=== PATIENT | female | born 2000 ===

== ENCOUNTER 2022-07-12 09:45 | Outpatient (CLI) | payer MEDICAID, SELFPAY ==
[2022-07-12 11:26] LABS: Alanine Aminotransferase* 14 U/L (4-35); Aspartate Amino Transferase* 21 U/L (12-35)
[2022-07-13 22:57] LABS: Bile Acids, Total 8 umol/L (0-10)
== END 2022-07-12 09:46 | disposition home or self-care (01) ==
PROVIDERS: Visit Provider Advanced Practice Midwife
DX: L29.9 Pruritus, unspecified (principal)
CPT/HCPCS: 82239; 84450; 84460

== ENCOUNTER 2022-07-15 13:56 | Outpatient (CLI) | payer MEDICAID, SELFPAY ==
--- NOTE | 2022-07-15 14:00 | CRLHL7_ITS ---
For Patients: As a result of the Cures Act, medical imaging exams and procedure reports are released immediately into your electronic medical record. You may view this report before your referring provider. If you have questions, please contact your health care provider. INDICATION: OB BPP AND FOLLOW UP, TRANSFER OF CARE COMPARISON: none TECHNIQUE: Real time schuler scale imaging of the fetus was performed. FINDINGS: Sonographic imaging demonstrates a single living intrauterine gestation. Fetus demonstrates a regular cardiac rate of 129 beats per minute. Fetus has a vertex position. The placenta lies posteriorly. Amniotic fluid volume appears normal and there is a single deepest vertical pocket: 4.5 cm. The estimated weight is 1981gm which lies at the 37th %. BPD 29th percentile. HC 20th percentile. AC 43rd percentile. FL 41st percentile. The HC/AC ratio measures 1.05 range (0.96-1.12). Normal gross body movements, tone and respiratory activity. IMPRESSION: Biophysical profile 03/15. Sonographic gestational age 32 weeks 4 days and sonographic due date 09/05/2022. Good correlation with dates. Estimated weight 37th percentile. Abdominal circumference 43rd percentile. Dictated by Chay Lorenzo MD @ 07/16/2022 11:49:31 AM (Electronically Signed)
== END 2022-07-15 13:57 | disposition home or self-care (01) ==
PROVIDERS: Visit Provider Advanced Practice Midwife
DX: O26.619 Liver and biliary tract disorders in pregnancy, unspecified trimester (principal); K83.1 Obstruction of bile duct
CPT/HCPCS: 76816; 76819

== ENCOUNTER 2022-07-15 15:47 | Outpatient (CLI) | payer MEDICAID, SELFPAY ==
[2022-07-15 17:32] LABS: Alanine Aminotransferase* 13 U/L (4-35); Aspartate Amino Transferase* 17 U/L (12-35)
[2022-07-18 12:22] LABS: Rapid Plasma Reagin (RPR) Non Reactive (Non Reactive)
[2022-07-18 18:56] LABS: Bile Acids, Total 9 umol/L (0-10)
== END 2022-07-15 15:48 | disposition home or self-care (01) ==
PROVIDERS: Visit Provider Obstetrics & Gynecology
DX: Z34.83 Encounter for supervision of other normal pregnancy, third trimester (principal); L29.9 Pruritus, unspecified
CPT/HCPCS: 76816; 76819; 82239; 84450; 84460; 86592; 86900; 86901

== ENCOUNTER 2022-07-22 10:29 | Outpatient (CLI) | payer MEDICAID, SELFPAY ==
[2022-07-22 13:45] LABS: Alanine Aminotransferase* 16 U/L (4-35); Aspartate Amino Transferase* 19 U/L (12-35)
[2022-07-23 17:31] LABS: Bile Acids, Total 2 umol/L (0-10)
== END 2022-07-22 10:30 | disposition home or self-care (01) ==
PROVIDERS: Visit Provider Obstetrics & Gynecology
DX: L29.9 Pruritus, unspecified (principal)
CPT/HCPCS: 82239; 84450; 84460

== ENCOUNTER 2022-08-05 10:08 | Outpatient (CLI) | payer MEDICAID, SELFPAY ==
[2022-08-05 12:27] LABS: Alanine Aminotransferase* 13 U/L (4-35); Aspartate Amino Transferase* 18 U/L (12-35)
[2022-08-06 14:44] LABS: Strep B DNA Probe NEGATIVE (Negative)
[2022-08-06 16:01] LABS: Bile Acids, Total 6 umol/L (0-10)
[2022-08-07 17:04] LABS: Strep B Pen/Amox Allergy No
== END 2022-08-05 10:09 | disposition home or self-care (01) ==
PROVIDERS: Visit Provider Obstetrics & Gynecology
DX: Z34.83 Encounter for supervision of other normal pregnancy, third trimester (principal); L29.9 Pruritus, unspecified; Z3A.35 35 weeks gestation of pregnancy
CPT/HCPCS: 82239; 84450; 84460; 87081; 87653

== ENCOUNTER 2022-08-12 08:45 | Outpatient (CLI) | payer MEDICAID, SELFPAY ==
--- NOTE | 2022-08-12 08:45 | CRLHL7_ITS ---
For Patients: As a result of the Century Cures Act, medical imaging exams and procedure reports are released immediately into your electronic medical record. You may view this report before your referring provider. If you have questions, please contact your health care provider. INDICATION: INCREASED RISK FOR CHOLESTASIS TECHNIQUE: Real time schuler scale imaging of the fetus was performed. COMPARISON: 07/15/2022 FINDINGS: Sonographic imaging demonstrates a single living intrauterine gestation. Fetus demonstrates a regular cardiac rate of 154 beats per minute. Fetus has a vertex position. The placenta lies posteriorly. Amniotic fluid volume appears normal and there is a single deepest pocket of 5.8 cm. The estimated weight is 2960gm which lies at the 53rd %. On the prior OB ultrasound dated 07/15/2022 the estimated weight was at the 37th percentile. BPD 40th percentile. HC 26th percentile. AC 59th percentile. FL 56th percentile. The fetus was active and without normal breathing movements. There was normal flexion and extension of the trunk and extremities. IMPRESSION: Biophysical profile 01/13. Absent breathing activity. Sonographic gestational age 36 weeks 3 days and sonographic due date 09/06/2022. Good correlation with dates. Normal interval growth. Estimated weight 53rd percentile. Abdominal circumference 59th percentile. Dictated by Chay Lorenzo MD @ 08/12/2022 1:38:46 PM (Electronically Signed)
== END 2022-08-12 08:46 | disposition home or self-care (01) ==
LOC: US 08:46
PROVIDERS: Visit Provider Advanced Practice Midwife
DX: O26.619 Liver and biliary tract disorders in pregnancy, unspecified trimester (principal); K83.1 Obstruction of bile duct
CPT/HCPCS: 76816; 76819

== ENCOUNTER 2022-08-12 08:55 | Outpatient (CLI) | payer MEDICAID, SELFPAY ==
[2022-08-12 10:52] LABS: Alanine Aminotransferase* 14 U/L (4-35); Aspartate Amino Transferase* 23 U/L (12-35)
[2022-08-14 05:47] LABS: Bile Acids, Total 3 umol/L (0-10)
== END 2022-08-12 08:56 | disposition home or self-care (01) ==
PROVIDERS: Visit Provider Obstetrics & Gynecology
DX: L29.9 Pruritus, unspecified (principal)
CPT/HCPCS: 76816; 76819; 82239; 84450; 84460

== ENCOUNTER 2022-08-19 10:01 | Outpatient (CLI) | payer MEDICAID, SELFPAY ==
[2022-08-19 13:06] LABS: Alanine Aminotransferase* 13 U/L (4-35); Aspartate Amino Transferase* 24 U/L (12-35)
[2022-08-20 22:44] LABS: Bile Acids, Total 4 umol/L (0-10)
== END 2022-08-19 10:02 | disposition home or self-care (01) ==
PROVIDERS: Visit Provider Obstetrics & Gynecology
DX: O99.013 Anemia complicating pregnancy, third trimester (principal); L29.9 Pruritus, unspecified; Z34.83 Encounter for supervision of other normal pregnancy, third trimester; Z3A.37 37 weeks gestation of pregnancy
CPT/HCPCS: 82239; 84450; 84460

== ENCOUNTER 2022-08-30 14:15 | Inpatient (IN) | payer MEDICAID, SELFPAY ==
[2022-08-30] VITALS (11 sets, daily range): BP systolic 103–123; BP diastolic 55–66; PULSE 65–88; RESP 16–18; TEMP 36.6–36.7; BMI 38.4
[2022-08-30 13:08] LABS: Amnisure Rom* Negative
--- NOTE | 2022-08-30 14:09 | PM.OBHPLI ---
OB - H&P: HPI Labor/Induction History of Present Illness Time Seen by Provider: 14:10 Date Seen: 08/30/22 Chief Complaint: LOF Chief complaint: Maternity Narrative: The patient is a 21 year old 3 para 1011 at 39.1 weeks gestation who presents with possible LO due to increased discharge. AmniSure negative. However, patient has elective IOL scheduled for this afternoon anyway. Currently, she has irregular contractions. No vaginal bleeding. Very active movements. See full H&P by Dr. Correa on 08/19. Review of Systems Status of ROS: Reports: 10 or more systems reviewed and unremarkable except as noted in History and below Meds Home Medications and Allergies Home Medications Medication Instructions Recorded Confirmed Type hydroxyzine HCl 10 mg tablet 10 mg PO QID PRN 07/12/22 08/30/22 History omeprazole 20 mg capsule,delayed 20 mg PO BID 07/12/22 08/30/22 History release prenat.vits,darci,cym-gyrg-zdiib 1 tab PO QDAY 07/22/22 08/30/22 History Allergies Allergy/AdvReac Type Severity Reaction Status Date / Time No Known Drug Allergies Allergy Verified 08/26/22 10:11 OB - H&P: Exam Physical Exam: Vital signs: Temp Pulse Resp BP 98.1 F 88 16 123/58 L 08/30/22 12:30 08/30/22 12:31 08/30/22 12:30 08/30/22 12:31 Narrative: Physical exam: General: No acute distress Psych: Alert and oriented x3, full affect Lungs: Unlabored breathing Abdomen: Gravid and soft without tenderness, guarding or rebound Skin: No lesions or rashes Lower extremities: No edema or erythema Pelvic exam: Dry perineum. SVE 3 OB - Problem Based A/P Additional Plan (1) : Status: Acute (2) Anemia: Status: Acute Plan - Cook cath placed by myself at 1345. head was noted to be somewhat ballotable. I comforted vertex positioning with BSUS after placement of cook cath - Plan for titrating pitocin 6 hours after cook cath placement - Amniotomy as need - Pain management: Epidural eventually
[2022-08-30 15:54] LABS: SARS PCR* Negative SARS-CoV-2 (Negative)
[2022-08-30] MEDS: MORPHINE 10 MG/ML inj IM (17:25)
[2022-08-30 19:15] LABS: Basophils Absolute Auto 0.02 K/uL (0.00-0.30); Basophils Percent Auto 0.2 % (0.0-3.0); Eosinophils Absolute Auto 0.05 K/uL (0.00-0.50); Eosinophils Percent Auto 0.5 % (0.0-7.0); Hematocrit 32.6 % (33.0-51.0); Immature Granulocytes Abs Auto 0.09 K/uL (0.00-0.30); Immature Granulocytes Pct Auto 0.9 %; Lymphocytes Percent Auto 18.5 % (20-44); Mean Corpuscular HGB Conc 31 gm/dL (32-36); Mean Corpuscular Hemoglobin 23 pg (26-34); Mean Corpuscular Volume 74 fL (80-100); Monocytes Percent Auto 8.6 % (0.0-11.0); Neutrophils Absolute Auto 7.53 K/uL (1.7-7.0); Neutrophils Percent Auto 71.3 % (42.0-72.0); Platelet Count* 307 K/uL (140-440); RDW Coefficient of Variation % 16.5 % (11.5-15.5); Red Blood Count 4.43 m/uL (4.00-5.20); White Blood Count* 10.55 K/uL (4.50-11.00)
[2022-08-30 19:16] LABS: Slide Review Reflex No
[2022-08-30] MEDS: LACTATED RINGERS 1000 ML 1,000 ML 125 ML IV (20:30)
[2022-08-30] MEDS: OXYTOCIN 30 unit/500 ML in NS 30 UNIT/500 ML BAG IVPB (20:30)
[2022-08-31] VITALS (47 sets, daily range): BP systolic 95–128; BP diastolic 51–73; PULSE 62–106; RESP 16–18; TEMP 36.4–36.7; O2SAT 93–100
[2022-08-31] MEDS: LACTATED RINGERS 1000 ML 1,000 ML 125 ML IV (04:22)
[2022-08-31] MEDS: fentaNYL 250 MCG/5 ML inj 100 MCG EPIDURAL (06:30)
[2022-08-31] MEDS: LIDOCAINE 2% (PF) 5 ML VIAL EPIDURAL (06:30)
[2022-08-31] MEDS: LACTATED RINGERS 1000 ML 1,000 ML IV (06:37)
[2022-08-31] MEDS: ROPIVACAINE 0.2% 100 ml 100 ML 12 MG EPIDURAL (06:38)
--- NOTE | 2022-08-31 06:51 | P.ANBPRC_ITS ---
[facility] Medical History (Updated 08/26/22 @ 10:50 by Effie Givens MD) Cholestasis during Family History (Updated 07/12/22 @ 09:27 by Linda Novoa CNM) Grandfather Diabetes Prostate cancer Mother Seizure disorder Social History Smoking Status: Never smoker Little interest or pleasure in doing things: not at all Feeling down, depressed, or hopeless: not at all Meds Home Medications and Allergies Home Medications Medication Instructions Recorded Confirmed Type hydroxyzine HCl 10 mg tablet 10 mg PO QID PRN 07/12/22 08/30/22 History omeprazole 20 mg capsule,delayed 20 mg PO BID 07/12/22 08/30/22 History release prenat.vits,darci,lim-mgwp-vgxcm 1 tab PO QDAY 07/22/22 08/30/22 History Allergies Allergy/AdvReac Type Severity Reaction Status Date / Time No Known Drug Allergies Allergy Verified 08/26/22 10:11 Results Labs Labs: Laboratory Results - last 24 hr 08/30/22 08/30/22 08/30/22 12:39 13:55 18:45 WBC 10.55 RBC 4.43 Hgb 10.0 L Hct 32.6 L MCV 74 L MCH 23 L MCHC 31 L RDW Coeff of Anthony 16.5 H Plt Count 307 Neut % (Auto) 71.3 Lymph % (Auto) 18.5 L [place] % (Auto) 8.6 Eos % (Auto) 0.5 Baso % (Auto) 0.2 Neut # (Auto) 7.53 H Lymph # (Auto) 2.00 [place] # (Auto) 0.90 Eos # (Auto) 0.05 Baso # (Auto) 0.02 Membrane Rupture Negative SARS-CoV-2 (PCR) Negative SARS-CoV-2 Blood Type Antibody Screen 08/30/22 18:45 WBC RBC Hgb Hct MCV MCH MCHC RDW Coeff of Anthony Plt Count Neut % (Auto) Lymph % (Auto) [place] % (Auto) Eos % (Auto) Baso % (Auto) Neut # (Auto) Lymph # (Auto) [place] # (Auto) Eos # (Auto) Baso # (Auto) Membrane Rupture SARS-CoV-2 (PCR) Blood Type O Positive Antibody Screen NEGATIVE Vital Signs Vital Signs: Last Vital Signs Temp 97.8 F 08/31/22 05:41 Pulse 85 08/31/22 06:47 Resp 18 08/31/22 05:41 BP 113/57 L 08/31/22 06:47 Pulse Ox 97 08/31/22 06:48 Weight: 108 kg Height: 167.64 cm Anesthesia Procedures Epidural Insertion Patient Location: OB Start Time: 06:00 Stop Time: 07:00 Start Date: 08/31/22 Stop Date: 08/31/22 Reason for Block: primary anesthetic Patient Position: sitting Performed By: Chan Leone Preanesthetic Checklist: IV checked, risks and benefits discussed, surgical consent, monitors and equipment checked, pre-op evaluation, timeout performed and anesthesia consent Prep: chlorhexidine gluconate Monitoring: blood pressure monitoring, monitoring engineer, continuous pulse oximetry and heart rate Approach: midline Vertebral Space: lumbar (1-5) Needle Type: Tuohy needle Injection Technique: continuous catheter Needle gauge: 17 Needle Length (cm): 10 cm Needle Insertion Depth (cm): 6 Catheter Gauge: 19 Catheter Type: multi-orifice Catheter at skin depth (cm): 12 Test Dose Result: negative and lidocaine 1.5% with epinephrine 1 to 200,000 Events: other
--- NOTE | 2022-08-31 08:22 | PM.OBPRCVD ---
Procedure Delivery date: 08/31/22 Procedure Done: Global Procedure Details: The patient is a 21 year-old G 3 P 1 0 1 2 admitted on 08/30/2022 at 39 Weeks, 1 Days gestation for induction of labor.? Cervical exam on admission was 1 cm/25 % effaced/-3 station with membranes intact in vertex presentation.? Contractions were sporadic.? heart rate demonstred a category 1 tracing.? SROM occurred at 0711 with clear fluid. ? Labor Analgesia:? Epidural ? Pitocin:? Yes ? Labor onset:? 209 ? Complete:? 730 ? Pushing:? 740 ? heart tones during second stage with a prolonged deceleration, I was called in to the room to evaluate after deceleration. Patient was in hands and knees, CNM at bedside placing a scalp electrode. This was unsuccessful, I asked patient to be placed back on her back and I did a cervical check, station was found at +1. External monitor sowing heart rate on the 80s. I then asked mom to do a push to evaluate if she could move baby quickly, she did and even w/o a uterine contraction baby was seen to move to +2 station, I asked for a vacuum but patient kept pushing and w/o assistance delivered baby head in OP presentation with cord wrapped around body, this was easily reduced followed by delivery of the rest of the body. ? At 0752 a viable female delivered in vertex OP presentation over intact perineum via spontaneous vaginal delivery.? Infant was placed on maternal abdomen.? Cord was clamped and cut after a 30-60 second delay.? Nose and mouth were bulb suctioned.? Infant weight pending.? 6 at 1 minute and 9 at 5 minutes.? Shoulder dystocia: No.?Cord wrapped around body x1. ? Placenta delivered spontaneously and complete at 0759 with a 3 vessel cord. ? Mother and infant were stable after delivery. ? Lacerations:? Second-degree, repaired with Vicryl 3-0. ? Blood loss: 100 mL. Blood loss measurement type: QBL ? Sponge and needles counts are correct.
[2022-08-31] MEDS: ACETAMINOPHEN 500 MG TABLET 1000 MG PO ×3 (10:16→22:33)
[2022-08-31] MEDS: DOCUSATE SODIUM 100 MG CAPSULE PO (10:16)
[2022-08-31] MEDS: HYDROCORTISONE 1 % CREAM 1 APPLIC TOPICAL (12:45)
[2022-08-31] MEDS: IBUPROFEN 600 MG TABLET PO (19:46)
[2022-09-01] MEDS: CALCIUM CARBONATE 500 MG CHEW PO (00:33)
[2022-09-01 00:52] VITALS: BP 106/70; PULSE 73; RESP 16; TEMP 36.6; O2SAT 98
[2022-09-01] MEDS: IBUPROFEN 600 MG TABLET PO (02:30)
[2022-09-01] MEDS: LANOLIN CREAM 1 APPLIC TOPICAL (02:37)
[2022-09-01] MEDS: ACETAMINOPHEN 500 MG TABLET 1000 MG PO (04:49)
[2022-09-01 04:55] VITALS: BP 97/60; PULSE 67; RESP 14; TEMP 36.4; O2SAT 99
[2022-09-01 07:38] LABS: Hemoglobin* 9.4 gm/dL (12.0-16.0)
[2022-09-01 07:45] VITALS: BP 102/62; PULSE 69; RESP 16; TEMP 36.6; O2SAT 98
--- NOTE | 2022-09-01 10:37 | PM.OBDSVD1 ---
DS: Providers Provider Date Seen: 09/01/22 Date of admission: 08/30/22 14:15 Primary care physician: Not a Local Provider Admitting Clinician: Saritha Hull MD Attending Physician on discharge: Tory Cavrajal CNM Date of Discharge: 09/01/22 DS: Diagnosis Discharge Diagnosis (1) care and examination immediately after delivery: Status: Acute (2) Lactating mother: Status: Acute Exam Narrative: Exam Narrative: GENERAL APPEARANCE:? normal affect, alert, no distress? MOOD:? appropriate? CHEST:? clear to auscultation? HEART:? regular rate and rhythm? ABDOMEN:? soft, non-tender the uterine fundus is At Umbilicus, Midline and is appropriate for the stage of recovery.? PERINEUM:? mild edema of the perineum, there is a Perineal Laceration,? 2nd degree, that is healing well.? EXTREMITIES:? normal and trace edema? Const: Vital Signs, click to edit/add: Vital Signs - 24 hr 08/31/22 12:05 08/31/22 16:25 08/31/22 19:03 Temperature 97.7 F 97.5 F L 98.1 F Pulse Rate [Blood Pressure Cuff] 80 80 87 Pulse Rate [Pulse Oximeter] Respiratory Rate 16 16 16 Blood Pressure [Le ft Arm] 110/73 95/61 105/62 Pulse Oximetry 97 99 Oxygen Delivery Me thod Room Air Room Air Room Air 09/01/22 00:52 09/01/22 04:55 09/01/22 07:45 Temperature 97.8 F 97.6 F 98 F Pulse Rate [Blood Pressure Cuff] Pulse Rate [Pulse Oximeter] 73 67 69 Respiratory Rate 16 14 16 Blood Pressure [Le ft Arm] 106/70 97/60 102/62 Pulse Oximetry 98 99 98 Oxygen Delivery Me thod Room Air Room Air Room Air OB - DS: Summary Hospital Course Hospital Course: The patient is a 21 year old G 3 P 2011 at 39 1/7 weeks gestation that was admitted to the Center on 08/30/22 for labor. She had an uncomplicated vaginal delivery. She delivered a viable female . the patient has done well. complicated by anemia, started on iron. The patient feels well.? The pain is well controlled with current medications.? She has no new complaints.? Urinary output is adequate and she is voiding without difficulty.? Has a good appetite, is tolerating a general diet, is passing flatus, and has had a bowel movement.? Has scant amount of rubra lochia.? She is ambulating well. She is and reports it is going well.? Peripartum Data delivery method: Vaginal Laceration description: Perineal - 2nd Degree [place] Infant Gender: Female Discharge Plan: Home Status at Discharge Functional status at discharge: independent ambulation Time Spent with Patient Time attestation: Total time spent providing and/or coordinating discharge services: Time spent: Less than 30 minutes Discharge Plan Discharge Disposition: Home, Self-Care Date of Admission: 08/30/22 14:15 Primary Care Provider: Provider,Not a Local Condition: Stable Anticipated Discharge Date/Time: 09/01/22 11:00 Discharge Medications: New acetaminophen 500 mg Tablet 1,000 mg PO Q6H PRNQty: 0 0RF docusate sodium 100 mg Capsule 100 mg PO DAILY Qty: 90 0RF ibuprofen 600 mg Tablet 600 mg PO Q6H PRNQty: 60 0RF ferrous sulfate 325 mg (65 mg iron) tablet 325 mg PO DAILY Qty: 90 0RF Continued hydroxyzine HCl 10 mg tablet 10 mg PO QID PRN omeprazole 20 mg capsule,delayed release(DR/EC) 20 mg PO BID prenat.vits,darci,abn-tlbp-dgqqj Tablet 1 tab PO QDAY Discharge Orders: Discharge Order (Routine); Ordered 09/01/22 Ordered By: Tory Carvajal Additional Instructions: Discharge instructions were reviewed with the patient including signs and symptoms of infection and home going medications Nothing vaginally for 6 weeks: no tampons or intercourse Off Work or School for 8 weeks 2-week visit: discuss feeding concerns, review control options and screen for anxiety/depression. 6-week visit for an annual exam. consultation services are available to all mothers and babies for the first year after delivery.? To make an appointment, please call [phone]. Activity Level: Activity as Tolerated Discharge Diet: Regular Follow Up Appointments: [facility] [Provider Group] Forms: [employer] Info Instructions
== END 2022-09-01 11:43 | disposition home or self-care (01) | DRG 560 ==
LOC: OB 08-31 09:08 → OB OUT 09-07 07:29 → OB 09-07 07:29
PROVIDERS: Obstetrics & Gynecology; Admitting Provider Obstetrics & Gynecology; Visit Provider Obstetrics & Gynecology
DX: O99.02 Anemia complicating childbirth (principal); O70.1 Second degree perineal laceration during delivery; Z3A.39 39 weeks gestation of pregnancy; Z37.0 Single live birth
CPT/HCPCS: 01967; 36415; 59200; 84112; 85018; 85025; 86850; 86900; 86901; 87635; 99213; A9270; J2270; J2795; J3010; J7120

== ENCOUNTER 2024-04-12 15:49 | Inpatient (IN) | payer MEDICAID, SELFPAY ==
[2024-04-12 15:56] VITALS: PULSE 67; RESP 16; TEMP 36.8; O2SAT 99
[2024-04-12 16:01] VITALS: PULSE 72; O2SAT 98
[2024-04-12 16:02] VITALS: BP 112/63; PULSE 65
[2024-04-12 16:17] VITALS: BMI 38.5
[2024-04-12] MEDS: miSOPROStoL 25 MCG/0.25 TABLET PO ×3 (17:39→22:05)
--- NOTE | 2024-04-12 17:45 | PM.OBHPLI ---
OB - H&P: HPI Labor/Induction History of Present Illness Date Seen: 04/12/24 Chief Complaint: The patient is a 23 year old 3 para 2 at 39.4 weeks gestation by LMP, who presents for IOL. Chief complaint: IOL-elective Date of last menstrual period: 07/10/23 Estimated date of delivery: 04/15/24 Gestational age based on last menstrual period: 39 Narrative: Narcisa Fry is a 23 year old at 39.4 weeks gestation who presents today for IOL. She has a history of anxiety and is on Buspar. She has been on ASA during for preeclampsia prophylaxis (Hx of eclampsia in the patient's mother as well as personal history of obesity (prepregnancy BMI of 33)). Has been on PO iron supplement throughout for anemia. She has been feeling well recently. Notes that she has had occasional cramping and contractions, but nothing consistent. No vaginal bleeding or LOF. Normal FM. No headaches, dizziness, or vision changes. Her first delivery was notable for vacuum-assisted vaginal delivery. Second delivery was . Labs Blood type: O (+) positive Rubella: immune RPR/VDLR: nonreactive GBS status: negative HBsAG: negative Meds Home Medications and Allergies Home Medications ?Medication ?Instructions ?Recorded ?Confirmed ?Type hydroxyzine HCl 10 mg tablet 10 mg PO QID PRN 07/12/22 04/12/24 History omeprazole 20 mg capsule,delayed 20 mg PO BID 07/12/22 04/12/24 History release prenat.vits,darci,ynt-zyeb-jbmsx 1 tab PO QDAY 07/22/22 04/12/24 History aspirin 81 mg tablet,delayed 81 mg PO DAILY 04/12/24 04/12/24 History release buspirone 10 mg tablet 10 mg PO 3XD 04/12/24 04/12/24 History Allergies Allergy/AdvReac Type Severity Reaction Status Date / Time fentanyl AdvReac Muscle Pain Verified 04/12/24 16:15 OB - H&P: Exam Physical Exam: Vital signs: Temp Pulse Resp BP Pulse Ox 98.3 F 65 16 112/63 98 04/12/24 15:56 04/12/24 16:02 04/12/24 15:56 04/12/24 16:02 04/12/24 16:01 Narrative: Gen: alert, pleasant, NAD Resp: breathing comfortably on room air CV: extremities warm and well perfused Abd: gravid, nontender to palpation Detailed Labor and Delivery Exam: Patient Gravid: Yes Dilation (cm): 3 Effacement (%): 50 Cervix position: mid Consistency: medium Fetus (Single): Heart Rate Baseline: 125 Monitor Accelerations: Absent Monitor Decelerations: None Usp Variability: Moderate (6-25) OB - Problem Based A/P Additional Plan (1) 39 weeks gestation of : Status: Acute Plan at 39.4 weeks' gestation who presents today for elective IOL. FHT is reactive. Kevin score 5. GBS negative. - cytotec per protocol (25 mcg every 2 hours) - plan to follow with pitocin, waiting at least 4 hours after last dose of pitocin - epidural when desired - anticipate Will be signing out to my partner, Dr. Harmon, for management overnight and plan to resume care in the AM on 04/13/24. Ivelisse Kerns DO
[2024-04-12 19:12] LABS: Basophils Absolute Auto 0.03 K/uL (0.00-0.30); Basophils Percent Auto 0.3 % (0.0-3.0); Eosinophils Absolute Auto 0.06 K/uL (0.00-0.50); Eosinophils Percent Auto 0.6 % (0.0-7.0); Hemoglobin* 11.4 gm/dL (12.0-16.0); Immature Granulocytes Abs Auto 0.12 K/uL (0.00-0.30); Immature Granulocytes Pct Auto 1.1 %; Lymphocytes Percent Auto 19.5 % (20-44); Mean Corpuscular HGB Conc 31 gm/dL (32-36); Mean Corpuscular Hemoglobin 24 pg (26-34); Mean Corpuscular Volume 79 fL (80-100); Monocytes Percent Auto 8.3 % (0.0-11.0); Neutrophils Percent Auto 70.2 % (42.0-72.0); Platelet Count* 239 K/uL (140-440); RDW Coefficient of Variation % 15.1 % (11.5-15.5); White Blood Count* 10.82 K/uL (4.50-11.00)
[2024-04-12 19:15] LABS: Slide Review Reflex No
[2024-04-12 19:59] VITALS: PULSE 64; O2SAT 100
[2024-04-12 20:00] VITALS: BP 142/63; PULSE 67
[2024-04-12 20:02] VITALS: BP 122/66; PULSE 73; TEMP 36.3
[2024-04-12] MEDS: hydrOXYzine pamoate 25 MG CAPSULE 100 MG PO (20:15)
[2024-04-13] VITALS (69 sets, daily range): BP systolic 101–142; BP diastolic 52–79; PULSE 57–146; RESP 14–16; TEMP 36.3–37; O2SAT 80–100
[2024-04-13] MEDS: miSOPROStoL 25 MCG/0.25 TABLET PO ×3 (01:47→05:59)
--- NOTE | 2024-04-13 07:33 | P.OBPN_ITS ---
Subjective Date Seen: 04/13/24 Narrative: at 39.5w gestation with ongoing IOL. She is s/p 6 doses of oral Cytotec overnight. Becoming more uncomfortable with some of her ctx. No bleeding. No LOF. Normal FM. Slept overnight. Consents to exam and AROM if able. Objective Vital Signs: Last Vital Signs Temp 97.4 F L 04/13/24 06:14 Pulse 66 04/13/24 06:11 Resp 16 04/12/24 15:56 BP 118/65 04/13/24 06:11 Pulse Ox 99 04/13/24 06:09 Pelvic Exam Dilation (cm): 6 Effacement (%): 75 Station: -2 Contractions Contraction pattern: Regular Assessment Assessment: active labor Station: -2 Amniotic Membrane Status: AROM Heart Rate Baseline: 130 [facility] Variability: Moderate (6-25) Monitor Accelerations: Absent Monitor Decelerations: None Plan Plan: at 39.5 weeks in active labor, s/p AROM with clear fluid at 07:28. GBS negative. - epidural when/if desired - discussed pitocin if needed 4 hours after last dose of Cytotec - anticipate
[2024-04-13] MEDS: LACTATED RINGERS 1000 ML 1,000 ML 1200 ML IV (10:14)
[2024-04-13] MEDS: BUPIVACAINE 0.25% PF 10 ML 10 ML ML EPIDURAL (10:33)
[2024-04-13] MEDS: ROPIVACAINE 0.2% 100 ml 100 ML 12 MG EPIDURAL (10:34)
--- NOTE | 2024-04-13 11:15 | P.ANBPRC_ITS ---
[facility] Medical History (Updated 04/12/24 @ 17:59 by Ivelisse Kerns, ) 39 weeks gestation of ?Z3A.39 - 39 weeks gestation of (ICD-10) Cholestasis during ?O26.619 - Liver and biliary tract disorders in , unspecified trimester (ICD-10) ?K83.1 - Obstruction of bile duct (ICD-10) Family History (Updated 07/12/22 @ 09:27 by Linda Novoa CNM) Grandfather Diabetes Prostate cancer Mother Seizure disorder Social History What is your current living situation?: I presently have a place to live Problems where you live: no known problems In the past 12 months, utilities in danger of being shut off: no In past 12 months, lack of transportation kept you from medical appts, meetings, work, or getting things needed for daily living: no In the past 12 mos, have been you worried that your food would run out before you had money to buy more?: never true In the past 12 mos, the food you bought just didn't last and you didn't have money to buy more?: never true Smoking Status: Former smoker How often does anyone, including family, friends and others, physically hurt you : never How often does anyone, including family, friends and others, insult or talk down to you: never How often does anyone, including family, friends and others, threaten you with harm: never How often does anyone, including family, friends and others, scream or curse at you: never Little interest or pleasure in doing things: not at all Feeling down, depressed, or hopeless: not at all Meds Home Medications and Allergies Home Medications ?Medication ?Instructions ?Recorded ?Confirmed ?Type hydroxyzine HCl 10 mg tablet 10 mg PO QID PRN 07/12/22 04/12/24 History omeprazole 20 mg capsule,delayed 20 mg PO BID 07/12/22 04/12/24 History release prenat.vits,darci,utf-igmo-adwhm 1 tab PO QDAY 07/22/22 04/12/24 History aspirin 81 mg tablet,delayed 81 mg PO DAILY 04/12/24 04/12/24 History release buspirone 10 mg tablet 10 mg PO 3XD 04/12/24 04/12/24 History Allergies Allergy/AdvReac Type Severity Reaction Status Date / Time fentanyl AdvReac Muscle Pain Verified 04/12/24 16:15 Results Labs Labs: Laboratory Results - last 24 hr 04/12/24 16:51 WBC 10.82 RBC 4.70 Hgb 11.4 L Hct 37.0 MCV 79 L MCH 24 L MCHC 31 L RDW Coeff of Anthony 15.1 Plt Count 239 Neut % (Auto) 70.2 Lymph % (Auto) 19.5 L [place] % (Auto) 8.3 Eos % (Auto) 0.6 Baso % (Auto) 0.3 Neut # (Auto) 7.60 H Lymph # (Auto) 2.10 [place] # (Auto) 0.90 Eos # (Auto) 0.06 Baso # (Auto) 0.03 Abs Immat Gran (auto) 0.12 Imm/Tot Granulo (auto) 1.1 Blood Type O Positive Antibody Screen NEGATIVE Vital Signs Vital Signs: Last Vital Signs Temp 97.8 F 04/13/24 11:14 Pulse 76 04/13/24 11:15 Resp 16 04/13/24 07:33 BP 124/63 04/13/24 11:15 Pulse Ox 99 04/13/24 11:11 Weight: 108.227 kg Height: 167.64 cm Anesthesia Procedures Epidural Insertion Patient Location: OB Start Time: 10:30 Stop Time: 11:15 Start Date: 04/13/24 Stop Date: 04/13/24 Reason for Block: procedure for pain Patient Position: sitting Performed By: Marianne Ken Preanesthetic Checklist: IV checked, risks and benefits discussed, monitors and equipment checked, timeout performed and anesthesia consent Prep: chlorhexidine gluconate Monitoring: blood pressure monitoring, continuous pulse oximetry and heart rate Approach: midline Vertebral Space: lumbar (1-5) Epidural Technique: MAYE saline Needle Type: Tuohy needle Injection Technique: continuous catheter Needle gauge: 17 Needle Length (cm): 10 cm Needle Insertion Depth (cm): 8 Catheter Gauge: 19 Catheter Type: multi-orifice Catheter at skin depth (cm): 13 Test Dose Result: negative and lidocaine 1.5% with epinephrine 1 to 200,000
[2024-04-13] MEDS: OXYTOCIN 30 unit/500 ML in NS 30 UNIT/500 ML BAG IVPB (11:21)
[2024-04-13] MEDS: LIDOCAINE 1 % PF 30 ML INJECTION (12:55)
[2024-04-13] MEDS: miSOPROStoL 800 MCG/4 TABLET PR (13:06)
--- NOTE | 2024-04-13 13:18 | W.PM.VAGDEL1 ---
Procedure Delivery date: 04/13/24 Procedure Done: ELIAS Global Procedure Details: G3 now P3 admitted on 04/12/24 for elective IOL. Underwent cervical ripening overnight with PO cytotec. Labor augmented with AROM and Pitocin. She progressed in labor and had of female on 04/13/24 at 39.5 weeks' gestation. Sustained small 2nd degree laceration that was repaired in usual fashion. Placenta delivered spontaneously and intact with 3 vessel cord. Given Pitocin and rectal cytotec following delivery given bleeding noted. EBL 200 mL. Intrapartal Events: Labor Induction Delivery augmentation: rupture of membranes and pitocin Route of delivery: Laceration description: Perineal - 2nd Degree Delivery repair: Vicryl Estimated blood loss (mL): 200 Anesthesia type: Epidural Infant Gender: Female presentation: vertex Placental Delivery Description: Spontaneous Cord Description: 3 Vessels and Around Body x1
[2024-04-13] MEDS: ACETAMINOPHEN 500 MG TABLET 1000 MG PO ×2 (17:36→23:51)
[2024-04-13] MEDS: IBUPROFEN 600 MG TABLET PO (19:30)
[2024-04-14 00:05] VITALS: BP 103/53; PULSE 63; RESP 16; TEMP 36.6; O2SAT 98
[2024-04-14] MEDS: IBUPROFEN 600 MG TABLET PO (03:49)
[2024-04-14 03:51] VITALS: BP 108/67; PULSE 65; RESP 16; TEMP 36.5; O2SAT 98
[2024-04-14 05:21] LABS: Hemoglobin* 10.9 gm/dL (12.0-16.0)
[2024-04-14] MEDS: ACETAMINOPHEN 500 MG TABLET 1000 MG PO (07:18)
[2024-04-14 08:00] VITALS: BP 116/74; PULSE 63; RESP 16; TEMP 36.8; O2SAT 98
--- NOTE | 2024-04-14 08:31 | PM.OBDSVD1 ---
DS: Providers Provider Date Seen: 04/14/24 Date of admission: 04/12/24 15:49 Admitting Clinician: Ivelisse Kerns DO Attending Physician on discharge: Ivelisse Kerns DO Date of Discharge: 04/14/24 Exam Narrative: Exam Narrative: Gen: alert, pleasant, NAD Resp: CTA b/l, breathing comfortably on room air Heart: RRR, no murmurs Abd: fundus firm MSK: no LE edema Const: Vital Signs, click to edit/add: Vital Signs - 24 hr 04/13/24 08:40 04/13/24 09:35 04/13/24 10:15 Temperature 97.8 F 98.1 F Pulse Rate Pulse Rate [Pulse Oximeter] Respiratory Rate Blood Pressure Blood Pressure [Le ft Arm] Pulse Oximetry 80 L Oxygen Delivery [facility] 04/13/24 10:16 04/13/24 10:21 04/13/24 10:26 Temperature Pulse Rate 64 Pulse Rate [Pulse Oximeter] Respiratory Rate Blood Pressure 134/74 Blood Pressure [Le ft Arm] Pulse Oximetry 97 96 97 Oxygen Delivery [facility] 04/13/24 10:31 04/13/24 10:36 04/13/24 10:41 Temperature Pulse Rate Pulse Rate [Pulse Oximeter] Respiratory Rate Blood Pressure Blood Pressure [Le ft Arm] Pulse Oximetry 98 99 100 Oxygen Delivery [facility] 04/13/24 10:46 04/13/24 10:51 04/13/24 10:56 Temperature Pulse Rate Pulse Rate [Pulse Oximeter] Respiratory Rate Blood Pressure Blood Pressure [Le ft Arm] Pulse Oximetry 98 100 100 Oxygen Delivery [facility] 04/13/24 11:01 04/13/24 11:06 04/13/24 11:08 Temperature Pulse Rate 66 Pulse Rate [Pulse Oximeter] Respiratory Rate Blood Pressure 129/62 Blood Pressure [Le ft Arm] Pulse Oximetry 99 99 Oxygen Delivery [facility] 04/13/24 11:11 04/13/24 11:13 04/13/24 11:14 Temperature 97.8 F Pulse Rate 77 76 Pulse Rate [Pulse Oximeter] Respiratory Rate Blood Pressure 128/71 126/60 Blood Pressure [Le ft Arm] Pulse Oximetry 99 Oxygen Delivery [facility] 04/13/24 11:15 04/13/24 11:16 04/13/24 11:17 Temperature Pulse Rate 76 89 Pulse Rate [Pulse Oximeter] Respiratory Rate Blood Pressure 124/63 119/57 L Blood Pressure [Le ft Arm] Pulse Oximetry 99 [facility] 04/13/24 11:19 04/13/24 11:21 04/13/24 11:23 Temperature Pulse Rate 70 73 74 Pulse Rate [Pulse Oximeter] Respiratory Rate Blood Pressure 128/60 130/63 115/57 L Blood Pressure [Le ft Arm] Pulse Oximetry 99 [facility] 04/13/24 11:26 04/13/24 11:30 04/13/24 11:31 Temperature Pulse Rate 71 Pulse Rate [Pulse Oximeter] Respiratory Rate Blood Pressure 114/56 L Blood Pressure [Le ft Arm] Pulse Oximetry 99 98 Oxygen Delivery [facility] 04/13/24 11:35 04/13/24 11:36 04/13/24 11:39 Temperature Pulse Rate 70 71 Pulse Rate [Pulse Oximeter] Respiratory Rate Blood Pressure 112/52 L 114/55 L Blood Pressure [Le ft Arm] Pulse Oximetry 99 [facility] 04/13/24 11:41 04/13/24 11:44 04/13/24 11:46 Temperature Pulse Rate 64 Pulse Rate [Pulse Oximeter] Respiratory Rate Blood Pressure 119/56 L Blood Pressure [Le ft Arm] Pulse Oximetry 99 99 Oxygen Delivery [facility] 04/13/24 11:50 04/13/24 11:51 04/13/24 11:55 Temperature Pulse Rate 62 72 Pulse Rate [Pulse Oximeter] Respiratory Rate Blood Pressure 121/58 L 120/58 L Blood Pressure [Le ft Arm] Pulse Oximetry 99 [facility] 04/13/24 11:59 04/13/24 12:15 04/13/24 12:21 Temperature Pulse Rate 69 67 Pulse Rate [Pulse Oximeter] Respiratory Rate Blood Pressure 120/70 130/61 Blood Pressure [Le ft Arm] Pulse Oximetry 97 [facility] 04/13/24 12:26 04/13/24 12:31 04/13/24 12:36 Temperature Pulse Rate 80 146 H Pulse Rate [Pulse Oximeter] Respiratory Rate Blood Pressure 116/59 L 115/79 Blood Pressure [Le ft Arm] Pulse Oximetry 100 100 100 Oxygen Delivery [facility] 04/13/24 12:40 04/13/24 12:41 04/13/24 12:50 Temperature Pulse Rate 60 Pulse Rate [Pulse Oximeter] Respiratory Rate Blood Pressure 124/67 Blood Pressure [Le ft Arm] Pulse Oximetry 89 91 [facility] 04/13/24 13:04 04/13/24 13:09 04/13/24 13:15 Temperature Pulse Rate 62 69 Pulse Rate [Pulse Oximeter] Respiratory Rate 14 Blood Pressure 142/63 H 127/58 L Blood Pressure [Le ft Arm] Pulse Oximetry Oxygen Delivery [facility] 04/13/24 13:19 04/13/24 13:30 04/13/24 13:34 Temperature Pulse Rate 63 57 L Pulse Rate [Pulse Oximeter] Respiratory Rate 14 Blood Pressure 126/67 112/54 L Blood Pressure [Le ft Arm] Pulse Oximetry Oxygen Delivery [facility] 04/13/24 13:45 04/13/24 13:49 04/13/24 14:00 Temperature Pulse Rate 73 Pulse Rate [Pulse Oximeter] Respiratory Rate 16 14 Blood Pressure 114/58 L Blood Pressure [Le ft Arm] Pulse Oximetry Oxygen Delivery [facility] 04/13/24 14:04 04/13/24 14:15 04/13/24 14:22 Temperature Pulse Rate 79 88 Pulse Rate [Pulse Oximeter] Respiratory Rate 14 Blood Pressure 113/64 124/65 Blood Pressure [Le ft Arm] Pulse Oximetry Oxygen Delivery [facility] 04/13/24 14:34 04/13/24 14:37 04/13/24 14:50 Temperature 98.0 F Pulse Rate 83 78 Pulse Rate [Pulse Oximeter] Respiratory Rate 16 Blood Pressure 136/61 139/65 Blood Pressure [Le ft Arm] Pulse Oximetry Oxygen Delivery [facility] 04/13/24 14:50 04/13/24 15:15 04/13/24 15:17 Temperature 98 F Pulse Rate 88 Pulse Rate [Pulse Oximeter] Respiratory Rate 14 14 Blood Pressure 101/62 Blood Pressure [Le ft Arm] Pulse Oximetry [facility] 04/13/24 19:34 04/14/24 00:05 04/14/24 03:51 Temperature 98.6 F 97.9 F 97.7 F Pulse Rate Pulse Rate [Pulse Oximeter] 80 63 65 Respiratory Rate 16 16 16 Blood Pressure Blood Pressure [Le ft Arm] 104/64 103/53 L 108/67 Pulse Oximetry 97 98 98 Oxygen Delivery [facility] Room Air Room Air Room Air OB - DS: Summary Hospital Course Hospital Course: The patient is a 23 year old G 3 P 3 at 39.5 weeks gestation that was admitted to the Center on 04/12/24 for IOL. She had an uncomplicated vaginal delivery on 04/13/24. She delivered a viable female . She is breast feeding. the patient has done well. Lochia has been appropriate, no clots. Peripartum Data delivery method: Vaginal Laceration description: Perineal - 2nd Degree complications: none [place] Infant Gender: Female Infant Discharge Plan: Home Status at Discharge Functional status at discharge: independent ambulation Overall status at discharge: patient is back to baseline Time Spent with Patient Time attestation: Total time spent providing and/or coordinating discharge services: Time spent: Less than 30 minutes Discharge Plan Discharge Disposition: Home, Self-Care Date of Admission: 04/12/24 15:49 Primary Care Provider: Provider,Not a Local Condition: Stable Anticipated Discharge Date/Time: 04/14/24 14:00 Discharge Medications: New acetaminophen 500 mg Tablet 1,000 mg PO Q6H PRNQty: 40 0RF ibuprofen 600 mg Tablet 600 mg PO Q6H PRNQty: 40 0RF Continued hydroxyzine HCl 10 mg tablet 10 mg PO QID PRN Hold Instructions: not currently taking omeprazole 20 mg capsule,delayed release(DR/EC) 20 mg PO BID Hold Instructions: not currently taking prenat.vits,darci,[id number] Tablet 1 tab PO QDAY docusate sodium 100 mg Capsule 100 mg PO DAILY Qty: 90 0RF Hold Instructions: not currently taking ferrous sulfate 325 mg (65 mg iron) tablet 325 mg PO DAILY Qty: 90 0RF buspirone 10 mg tablet 10 mg PO 3XD Discontinued aspirin 81 mg tablet,delayed release (DR/EC) 81 mg PO DAILY Discharge Orders: Discharge Order (Routine); Ordered 04/14/24 Ordered By: Ivelisse Kerns Patient Education: Vaginal Delivery (DC) Follow Up Appointments: Provider,Not a Local [Primary Care Provider] - Forms: [employer] Info Instructions Discharge Comments: Follow up in 6 weeks for visit with Dr. Kerns. Start vitamin D supplementation of 4000 IU daily while . Continue vitamin as well. Breast pump prescription will be sent to [facility] through your [facility] chart.
[2024-04-14 12:40] VITALS: BP 118/72; PULSE 62; RESP 16; TEMP 36.9; O2SAT 98
[2024-04-14 18:31] LABS: Rapid Plasma Reagin (RPR) Non Reactive (Non Reactive)
--- NOTE | 2024-04-15 10:34 | PM.ANPOST ---
Post Anesthesia Note Post Anesthesia Note Patient seen: Inpatient Respiratory Status: adequate Cardiovascular Status: adequate Mental Status: baseline Pain: adequate Temp: baseline Anesthetic awareness: N/A Complications: none Follow care: none
== END 2024-04-14 13:37 | disposition home or self-care (01) | DRG 807 ==
PROVIDERS: Admitting Provider Family Medicine; Visit Provider Family Medicine
DX: O99.02 Anemia complicating childbirth (principal); D64.9 Anemia, unspecified; O70.1 Second degree perineal laceration during delivery; O99.344 Other mental disorders complicating childbirth; F41.9 Anxiety disorder, unspecified; Z37.0 Single live birth
CPT/HCPCS: 01967; 36415; 59200; 76815; 85018; 85025; 86592; 86850; 86900; 86901; A9270; J0665; J2001; J2371; J2795; J7120